=== PATIENT | female | born 1985 | race African-American/Black ===

== ENCOUNTER 2021-04-27 10:03 | Outpatient (CLI) | payer OTHER, SELFPAY ==
[2021-04-27 10:32] LABS: Basophils Percent Auto 0.9 % (0.2-1.2); Eosinophils Absolute Auto 0.2 K/mm3 (0-0.3); Eosinophils Percent Auto 3.3 % (0-4.4); Hematocrit 34.6 % (37.0-47.0); Hemoglobin 11.3 g/dL (12.0-15.0); Lymphocytes Absolute Auto 2.23 K/mm3 (0.9-3.2); Lymphocytes Percent Auto 49.6 % (18.3-44.2); Mean Corpuscular HGB Conc 32.7 g/dl (32-36); Mean Corpuscular Hemoglobin 28.5 pg (26-34); Mean Corpuscular Volume 87.2 fl (80-100); Mean Platelet Volume 8.7 fl (7.4-10.4); Monocytes Absolute Auto 0.5 K/mm3 (0.1-0.6); Monocytes Percent Auto 11.8 % (2.6-8.5); Neutrophils Absolute Auto 1.6 K/mm3 (1.3-6.7); Neutrophils Percent Auto 34.4 % (45.5-73.1); Platelet Count Result 276 k/mm3 (150-375); Red Blood Count 3.97 M/mm3 (4.2-5.4); Red Cell Distribution Width 13.3 % (11.5-14.5); White Blood Count 4.5 K/mm3 (4.5-10.0)
[2021-04-27 10:37] LABS: Add Urine Microscopic? YES; Appearance Urine Clear (Clear); Bacteria Urine Trace /hpf; Bilirubin Urine Negative (Negative); Blood Urine 1+ (Negative); Color Urine Colorless (Yellow); Glucose Urine UA Negative (Negative); Ketones Urine Negative (Negative); Leukocyte Esterase Ur Negative LEU/UL (Negative); Mucus Urine Rare /lpf; Nitrate Urine Negative (Negative); Protein Urine Negative (Negative); Squamous Epithelial Cell Urine Occasional /hpf (Few); Urobilinogen Urine Negative mg/dL (<2.0); WBC Urine 0-3 /hpf
[2021-04-27 10:44] LABS: Alanine Aminotransferase 9 U/L (4-35); Albumin Level 4.2 g/dL (3.5-5.1); Alkaline Phosphatase 40 U/L (38-126); Anion Gap 11 mmol/L (8-16); Aspartate Amino Transferase 22 U/L (14-36); Blood Urea Nitrogen 10 mg/dL (7-17); Calcium 9.1 mg/dL (8.4-10.2); Carbon Dioxide 22 mmol/L (22-30); Chloride 103 mmol/L (98-107); Cholesterol 146 mg/dL (0-200); Estimated Glomerular Filt Rate > 60; Glucose 97 mg/dL (65-110); HDL Direct 54 mg/dL; Potassium 3.5 mmol/L (3.4-5.0); Sodium 136 mmol/L (137-145); Triglycerides 83 mg/dL (<150)
[2021-04-27 10:46] LABS: Specific Grav Ur 1.004 (1.001-1.035)
[2021-04-27 10:54] LABS: LDL Cholesterol Direct 58 mg/dL
[2021-04-27 10:59] LABS: Hemoglobin A1C 5.8 % (<5.7)
[2021-04-27 11:31] LABS: Vitamin D 25 Hydroxy 50.2 ng/mL
== END 2021-04-27 10:04 | disposition home or self-care (01) ==
DX: E55.9 Vitamin D deficiency, unspecified (principal); I10 Essential (primary) hypertension; R73.02 Impaired glucose tolerance (oral)
CPT/HCPCS: 36415; 80053; 80061; 81001; 82306; 83036; 84443; 85025

== ENCOUNTER 2022-01-19 10:07 | Outpatient (CLI) | payer OTHER, SELFPAY ==
[2022-01-19 10:36] LABS: Hemoglobin A1C 6.2 % (<5.7)
[2022-01-19 10:38] LABS: Alanine Aminotransferase 10 U/L (6-35); Albumin Level 4.1 g/dL (3.5-5.1); Alkaline Phosphatase 35 U/L (38-126); Anion Gap 11 mmol/L (8-16); Aspartate Amino Transferase 21 U/L (14-36); Bilirubin,Total 0.5 mg/dL (0.2-1.3); Blood Urea Nitrogen 11 mg/dL (7-17); Calcium 8.7 mg/dL (8.4-10.2); Carbon Dioxide 25 mmol/L (22-30); Chloride 101 mmol/L (98-107); Cholesterol 142 mg/dL (0-200); Estimated Glomerular Filt Rate > 60; Glucose 109 mg/dL (65-110); HDL Direct 58 mg/dL; Sodium 137 mmol/L (137-145); Triglycerides 69 mg/dL (<150)
[2022-01-19 10:51] LABS: LDL Cholesterol Direct 60 mg/dL
== END 2022-01-19 10:08 | disposition home or self-care (01) ==
PROVIDERS: PCP Internal Medicine
DX: R73.03 Prediabetes (principal); I10 Essential (primary) hypertension
CPT/HCPCS: 36415; 80053; 80061; 83036

== ENCOUNTER 2022-06-07 10:35 | Outpatient (CLI) | payer OTHER, SELFPAY ==
[2022-06-07 11:03] LABS: Appearance Urine Clear (Clear); Bilirubin Urine Negative (Negative); Blood Urine Trace-lysed (Negative); Color Urine Yellow (Yellow); Glucose Urine UA Negative (Negative); Ketones Urine Negative (Negative); Leukocyte Esterase Ur Negative LEU/UL (Negative); Nitrate Urine Negative (Negative); Protein Urine Negative (Negative); Specific Grav Ur 1.025 (1.001-1.035); Urobilinogen Urine 0.2 mg/dL (<2.0); pH Urine 5.5 (5.0-9.0)
[2022-06-07 11:06] LABS: Basophils Absolute Auto 0.1 K/mm3 (0.0-0.1); Basophils Percent Auto 0.6 % (0.2-1.2); Eosinophils Absolute Auto 0.2 K/mm3 (0-0.3); Eosinophils Percent Auto 2.8 % (0-4.4); Hematocrit 38.7 % (37.0-47.0); Hemoglobin 12.7 g/dL (12.0-15.0); Immature Granulocyte Absolute 0.02 K/mm3 (0.00-0.031); Immature Granulocyte Percent A 0.2 % (0-0.5); Lymphocytes Absolute Auto 2.86 K/mm3 (0.9-3.2); Lymphocytes Percent Auto 34.8 % (18.3-44.2); Mean Corpuscular HGB Conc 32.8 g/dl (32-36); Mean Corpuscular Hemoglobin 28.5 pg (26-34); Mean Corpuscular Volume 86.8 fl (80-100); Mean Platelet Volume 8.8 fl (7.4-10.4); Monocytes Absolute Auto 0.6 K/mm3 (0.1-0.6); Monocytes Percent Auto 6.8 % (2.6-8.5); Neutrophils Absolute Auto 4.5 K/mm3 (1.3-6.7); Neutrophils Percent Auto 54.8 % (45.5-73.1); Platelet Count Result 391 k/mm3 (150-375); Red Blood Count 4.46 M/mm3 (4.2-5.4); White Blood Count 8.2 K/mm3 (4.5-10.0)
[2022-06-07 11:17] LABS: Hemoglobin A1C 6.3 % (<5.7)
[2022-06-07 11:18] LABS: Alanine Aminotransferase 14 U/L (6-35); Albumin Level 4.3 g/dL (3.5-5.1); Alkaline Phosphatase 39 U/L (38-126); Anion Gap 9 mmol/L (8-16); Aspartate Amino Transferase 23 U/L (14-36); Bilirubin,Total 0.9 mg/dL (0.2-1.3); Blood Urea Nitrogen 13 mg/dL (7-17); Calcium 8.8 mg/dL (8.4-10.2); Carbon Dioxide 25 mmol/L (22-30); Chloride 103 mmol/L (98-107); Estimated Glomerular Filt Rate > 60; Glucose 113 mg/dL (65-110); Potassium 3.8 mmol/L (3.4-5.0); Sodium 137 mmol/L (137-145)
[2022-06-07 11:20] LABS: Mucus Urine Rare /lpf; RBC Urine 0-2 /hpf (0-2); Squamous Epithelial Cell Urine Rare /hpf (Few); WBC Urine 0-3 /hpf
[2022-06-07 11:23] LABS: Iron 143 ug/dL (37-170)
[2022-06-07 11:27] LABS: Add Urine Microscopic? YES
[2022-06-07 11:33] LABS: Percent Iron Saturation 34 % (20-50)
== END 2022-06-07 10:36 | disposition home or self-care (01) ==
PROVIDERS: PCP Internal Medicine
DX: D50.9 Iron deficiency anemia, unspecified (principal); E55.9 Vitamin D deficiency, unspecified; I10 Essential (primary) hypertension; R73.03 Prediabetes
CPT/HCPCS: 36415; 80053; 81001; 82306; 82728; 83036; 83540; 83550; 84443; 85025

== ENCOUNTER 2022-12-22 10:16 | Outpatient (CLI) | payer OTHER, SELFPAY ==
[2022-12-22 11:17] LABS: Basophils Percent Auto 0.6 % (0.2-1.2); Eosinophils Absolute Auto 0.1 K/mm3 (0-0.3); Eosinophils Percent Auto 2.3 % (0-4.4); Hematocrit 38.7 % (37.0-47.0); Hemoglobin 12.8 g/dL (12.0-15.0); Immature Granulocyte Absolute 0.03 K/mm3 (0.00-0.031); Immature Granulocyte Percent A 0.5 % (0-0.5); Lymphocytes Absolute Auto 2.27 K/mm3 (0.9-3.2); Lymphocytes Percent Auto 36.5 % (18.3-44.2); Mean Corpuscular HGB Conc 33.1 g/dl (32-36); Mean Corpuscular Hemoglobin 28.5 pg (26-34); Mean Corpuscular Volume 86.2 fl (80-100); Mean Platelet Volume 9.1 fl (7.4-10.4); Monocytes Absolute Auto 0.5 K/mm3 (0.1-0.6); Monocytes Percent Auto 7.6 % (2.6-8.5); Neutrophils Absolute Auto 3.3 K/mm3 (1.3-6.7); Neutrophils Percent Auto 52.5 % (45.5-73.1); Platelet Count Result 371 k/mm3 (150-375); Red Blood Count 4.49 M/mm3 (4.2-5.4); Red Cell Distribution Width 12.4 % (11.5-14.5); White Blood Count 6.2 K/mm3 (4.5-10.0)
[2022-12-22 11:32] LABS: Alanine Aminotransferase 12 U/L (6-35); Albumin Level 4.1 g/dL (3.5-5.1); Alkaline Phosphatase 41 U/L (38-126); Anion Gap 8 mmol/L (8-16); Aspartate Amino Transferase 26 U/L (14-36); Blood Urea Nitrogen 14 mg/dL (7-17); Calcium 8.9 mg/dL (8.4-10.2); Carbon Dioxide 27 mmol/L (22-30); Chloride 102 mmol/L (98-107); Cholesterol 151 mg/dL (0-200); Estimated Glomerular Filt Rate > 60; Glucose 100 mg/dL (65-110); HDL Direct 66 mg/dL; Potassium 3.4 mmol/L (3.4-5.0); Sodium 137 mmol/L (137-145); Triglycerides 74 mg/dL (<150)
[2022-12-22 11:34] LABS: Hemoglobin A1C 6.1 % (<5.7)
[2022-12-22 11:44] LABS: LDL Cholesterol Direct 65 mg/dL
[2022-12-22 11:47] LABS: Creatinine Urine 337.3 mg/dL
[2022-12-22 11:49] LABS: Vitamin D 25 Hydroxy 49.6 ng/mL
[2022-12-22 11:56] LABS: Microalbumin Urine Random 26.9 mg/L (0-16.7)
== END 2022-12-22 10:17 | disposition home or self-care (01) ==
PROVIDERS: PCP Internal Medicine; Visit Provider Internal Medicine
DX: Z00.00 Encounter for general adult medical examination without abnormal findings (principal); R73.03 Prediabetes; I10 Essential (primary) hypertension; E55.9 Vitamin D deficiency, unspecified
CPT/HCPCS: 36415; 80053; 80061; 82043; 82306; 83036; 84443; 85025

== ENCOUNTER 2023-07-03 10:03 | Outpatient (CLI) | payer OTHER, SELFPAY ==
[2023-07-03 10:56] LABS: Basophils Percent Auto 0.4 % (0.2-1.2); Eosinophils Absolute Auto 0.2 K/mm3 (0-0.3); Eosinophils Percent Auto 2.5 % (0-4.4); Hematocrit 36.7 % (37.0-47.0); Hemoglobin 12.1 g/dL (12.0-15.0); Immature Granulocyte Absolute 0.01 K/mm3 (0.00-0.031); Immature Granulocyte Percent A 0.1 % (0-0.5); Lymphocytes Absolute Auto 2.98 K/mm3 (0.9-3.2); Lymphocytes Percent Auto 41.5 % (18.3-44.2); Mean Corpuscular Hemoglobin 28.3 pg (26-34); Mean Corpuscular Volume 85.9 fl (80-100); Mean Platelet Volume 9.1 fl (7.4-10.4); Monocytes Absolute Auto 0.5 K/mm3 (0.1-0.6); Monocytes Percent Auto 6.8 % (2.6-8.5); Neutrophils Absolute Auto 3.5 K/mm3 (1.3-6.7); Neutrophils Percent Auto 48.7 % (45.5-73.1); Platelet Count Result 367 k/mm3 (150-375); Red Blood Count 4.27 M/mm3 (4.2-5.4); Red Cell Distribution Width 13.2 % (11.5-14.5); White Blood Count 7.2 K/mm3 (4.5-10.0)
[2023-07-03 11:15] LABS: Alanine Aminotransferase 9 U/L (6-35); Albumin Level 3.9 g/dL (3.5-5.1); Alkaline Phosphatase 40 U/L (38-126); Anion Gap 6 mmol/L (8-16); Aspartate Amino Transferase 23 U/L (14-36); Bilirubin,Total 0.8 mg/dL (0.2-1.3); Blood Urea Nitrogen 13 mg/dL (7-17); Calcium 9.1 mg/dL (8.4-10.2); Carbon Dioxide 27 mmol/L (22-30); Chloride 103 mmol/L (98-107); Cholesterol 149 mg/dL (0-200); Estimated Glomerular Filt Rate > 60; Glucose 107 mg/dL (65-110); HDL Direct 62 mg/dL; Potassium 3.8 mmol/L (3.4-5.0); Sodium 136 mmol/L (137-145); Triglycerides 103 mg/dL (<150)
[2023-07-03 11:23] LABS: Microalbumin Urine Random 7.2 mg/L (0-16.7)
[2023-07-03 11:24] LABS: Creatinine Urine 331.4 mg/dL
[2023-07-03 11:25] LABS: MALB Creatinine Ratio 2.2 mg/g (0-30)
[2023-07-03 11:26] LABS: LDL Cholesterol Direct 74 mg/dL
[2023-07-03 12:06] LABS: Vitamin D 25 Hydroxy 59.8 ng/mL
[2023-07-03 12:52] LABS: Hemoglobin A1C 6.1 % (<5.7)
== END 2023-07-03 10:04 | disposition home or self-care (01) ==
PROVIDERS: PCP Internal Medicine; Visit Provider Internal Medicine
DX: E55.9 Vitamin D deficiency, unspecified (principal); D50.9 Iron deficiency anemia, unspecified; R73.03 Prediabetes; I10 Essential (primary) hypertension
CPT/HCPCS: 36415; 80053; 80061; 82043; 82306; 82728; 83036; 84443; 85025

== ENCOUNTER 2024-02-28 10:37 | Outpatient (CLI) | payer OTHER, SELFPAY ==
[2024-02-28 11:16] LABS: Basophils Absolute Auto 0.1 K/mm3 (0.0-0.1); Basophils Percent Auto 0.7 % (0.2-1.2); Eosinophils Absolute Auto 0.3 K/mm3 (0-0.3); Hematocrit 39.7 % (37.0-47.0); Hemoglobin 13.1 g/dL (12.0-15.0); Immature Granulocyte Absolute 0.02 K/mm3 (0.00-0.031); Immature Granulocyte Percent A 0.2 % (0-0.5); Lymphocytes Percent Auto 32.8 % (18.3-44.2); Mean Corpuscular Hemoglobin 28.5 pg (26-34); Mean Corpuscular Volume 86.3 fl (80-100); Mean Platelet Volume 8.8 fl (7.4-10.4); Monocytes Absolute Auto 0.6 K/mm3 (0.1-0.6); Neutrophils Absolute Auto 4.5 K/mm3 (1.3-6.7); Neutrophils Percent Auto 55.3 % (45.5-73.1); Platelet Count Result 414 k/mm3 (150-375); Red Cell Distribution Width 13.2 % (11.5-14.5); White Blood Count 8.2 K/mm3 (4.5-10.0)
[2024-02-28 11:27] LABS: Alanine Aminotransferase 15 U/L (6-35); Albumin Level 4.4 g/dL (3.5-5.1); Alkaline Phosphatase 41 U/L (38-126); Anion Gap 11 mmol/L (4-12); Aspartate Amino Transferase 30 U/L (14-36); Bilirubin,Total 0.9 mg/dL (0.2-1.3); Blood Urea Nitrogen 13 mg/dL (7-17); Calcium 9.6 mg/dL (8.4-10.2); Carbon Dioxide 29 mmol/L (22-30); Chloride 99 mmol/L (98-107); Cholesterol 152 mg/dL (0-200); Estimated Glomerular Filt Rate > 60; Glucose 97 mg/dL (65-110); HDL Direct 77 mg/dL; Hemoglobin A1C 6.1 % (<5.7); Potassium 3.4 mmol/L (3.4-5.0); Sodium 139 mmol/L (137-145); Triglycerides 83 mg/dL (<150)
[2024-02-28 11:38] LABS: LDL Cholesterol Direct 55 mg/dL
[2024-02-28 11:58] LABS: Vitamin D 25 Hydroxy 60.6 ng/mL
[2024-02-28 12:20] LABS: Creatinine Urine 285.9 mg/dL
[2024-02-28 12:24] LABS: MALB Creatinine Ratio 3.5 mg/g (0-30); Microalbumin Urine Random 10.1 mg/L (0-16.7)
== END 2024-02-28 10:38 | disposition home or self-care (01) ==
LOC: ANHLAB 10:39
PROVIDERS: PCP Internal Medicine; Visit Provider Internal Medicine
DX: Z00.00 Encounter for general adult medical examination without abnormal findings (principal); E55.9 Vitamin D deficiency, unspecified; I10 Essential (primary) hypertension; R73.03 Prediabetes
CPT/HCPCS: 36415; 80053; 80061; 82043; 82306; 83036; 84443; 85025

== ENCOUNTER 2024-12-01 10:17 | Outpatient (CLI) | payer OTHER, SELFPAY ==
--- OUTSIDE RECORDS SUMMARY | 2024-12-01 10:26 | XMS_ITS | Clinical Summary ---
Author Organization [facility] Address [address] [place] [id number] Care Team Providers Care General Manager [employer] Name Role Phone DanielCarmen sheehan Hao LI Primary Care Provider [phone] Allergies No known active allergies Medications No known medications Social History Tobacco Use Types Packs/Day Years Used Date Smoking Tobacco: Never Smokeless Tobacco: Never Alcohol Use Standard Drinks/Week Comments Yes 0 (1 standard drink = 0.6 oz pur e alcohol) socially Comments No Sex and Gender Information Value Date Recorded Sex Assigned at Not on file Legal Sex Female 5:02 PM CDT Gender Identity Not on file Sexual Orientation Not on file Last Filed Vital Signs Vital Sign Reading Time Taken Comments Blood Pressure 149/97 07/19/2018 3:24 AM CDT Pulse 62 07/19/2018 3:24 AM CDT Temperature 37.1 C (98.7 F) 07/19/2018 1:35 AM CDT Respiratory Rate 18 07/19/2018 3:24 AM CDT Oxygen Saturation 100% 07/19/2018 3:24 AM CDT Inhaled Oxygen Concentration - - Weight 74.4 kg (164 lb) 07/19/2018 1:35 AM CDT Height 167.6 cm (5' 6) 07/19/2018 1:35 AM CDT Body Mass Index 26.47 07/19/2018 1:35 AM CDT Plan of Treatment Health Maintenance Due Date Last Done Comments Cervical Cancer Screening Pa p Smear (Age 30 to 64) Every 3 Years 1984 Annual Physical 1987 Hepatitis C 2002 DTaP, Tdap and Td Vaccines ( 1 - Tdap) 2003 Hepatitis B Vaccines (1 of 3 - 19+ 3-dose series) 2003 HPV Vaccines (1 - 3-dose SCD M series) 2011 Cervical Cancer Screening Pa p with HPV Testing (Age 30 to 64) Every 5 Years 2014 Cervical Cancer Screening with HPV 2014 COVID-19 Vaccine (2023-2 5 season) 2023 Mammogram Screening 2024 Meningococcal B Vaccine Aged Out No l onger eligible based on patient's age to complete this topic Meningococcal Vaccine Aged Out No lucita gerber eligible based on patient's age to complete this topic Pneumococcal Vaccine: Pediat rics (0 to 5 Years) and At-Risk Patients (6 to 49 Years) Aged Out No longer eligible b ased on patient's age to complete this topic RSV Immunizations Under 20 Months Aged Out No longer eligible based on patient's age to complete this [place] [address] [employer] Care Teams General Manager [employer] Relationship Specialty Start Date End Date Carmen Sanchez DO [address] [place] [address] PCP - General 11/19/15
--- OUTSIDE RECORDS SUMMARY | 2024-12-01 10:26 | XMS_ITS | Continuity of Care Document ---
Author Organization [facility] Address [address] [place] [address] Phone Care Team Providers Care Switch Tender Name Role Phone Carmen Sanchez DO Unavailable Unavailable Allergies, Adverse Reactions, Alerts Substance Reaction Status Criticality No Known Allergies Active No Inform ation Medications Medication Instructions Dosage Effective Dates (start - stop) Status Comments valacyclovir 1 gram tablet take 1 tablet by oral route every 12 hours 1000 MG - Active SPIRONOLACTONE 25MG W/HCTZ 25MG TAB TAKE 1 TABLET BY MOUTH EVERY DAY - Active OZEMPIC 2MG PER DOSE (8MG/3ML) PFP INJECT 2MG UNDER THE SKIN ONCE WEEKLY - Active trazodone 50 mg tablet take 1/2 - 2 tablets by oral route every bedtime as needed - Active ibuprofen 600 mg tablet take 1 tablet by oral route 3 times a day as needed - Active Accu-Chek Guide Glucose Meter - Active Dx: R73.03 Prediabetes Accu-Chek Safe-T-Pro 23 gauge - Active Dx: R73 .03 Prediabetes Accu-Chek Guide test strips insert 1 by Subcutaneous route every day 1 - Active Dx: R73.03 Prediabetes - Check one time daily multivitamin tablet take 1 by Oral route once 1 - Active FLUTICASONE 50MCG NASAL SP (120) RX SHAKE LIQUID AND USE 2 SPRAYS IN EACH NOSTRIL EVERY DAY NEEDED 100 MCG - Active Vitamin D3 25 mcg (1,000 unit) tablet take 3 by Oral route once 3 - Active Zyrtec 10 mg tablet take 1 tablet by oral route every day as needed - Active valacyclovir 1 gram tablet take 1 tablet by oral route every 12 hours 1000 MG - No Longer Active Procedures Procedure Date OFFICE [id number] BODY MASS INDEX [facility] SYST BP LT 130 MM HG DIAST BP < 80 MM HG OFFICE [id number]-[id number] [facility] 130 MM HG DIAST BP < 80 MM HG Pt inelig neg scrn depres PREVENTATIVE-EST: [facility] LT 130 MM HG DIAST BP < 80 MM HG OFFICE OQHNO-FBV-[id number] Visit Complexity Inherent To E/M 2023 BODY MASS INDEX DOCD SYST BP LT 130 MM HG DIAST BP < 80 MM HG Pt inelig neg scrn depres PREVENTATIVE-EST: [facility] LT 130 MM HG DIAST BP 80-89 MM HG Pt inelig neg scrn depres OFFICE [id number]-QBE-YEFSVIJG BODY MASS INDEX DOCD SYST BP LT 130 MM HG DIAST BP < 80 MM HG OFFICE [id number]-[id number]-[id number] BODY MASS INDEX [facility]D SYST BP LT 130 MM HG DIAST BP < 80 MM HG Pt inelig neg scrn depres OFFICE QWVPW-[id number]-XXANBOYZ BODY MASS INDEX DOCD SYST BP LT 130 MM HG DIAST BP < 80 MM HG OFFICE [id number]-[id number] OFFICE QZSHQ-WQR-OOCGFTQN OFFICE NVBOI-JRC-HNNCTEWO URINALYSIS, DIPSTICK (UA) - Office Lab A OFFICE DYEUK-DPA-QYIUJFLS [facility] PANEL HEMOGLOBIN A1C HGA1C, GLYCO LIPID PANEL URINALYSIS, REFLEX (UA) ROUTINE VENIPUNCTURE OFFICE [id number] Advance Directives Directive Yes / No Effective Date File Name Life Support Not Answered N/A N/A Intubation Not Answered N/A N/A Antibiotics Not Answered N/A N/A IV Fluid Support Not Answered N/A N/A Tube Feed Not Answered N/A N/A Other Directive N/A N/A WARNING:The information contained in this section is historical and is provided for information only and does not constitute a legal document or any assurance that the information is still accurate. Please verify the information with the archuleta of the legal document before using it for clinical purposes. Encounters Encounter Description Practice Location Reason(s) For Visit Diagnoses Date Provider Providers Copied on Encounter [facility], [address], [place], [place], [address] , tel: [phone] [facility] No Information 5 Daniel Morales. [address], [place], [id number] , [place]. tel: [phone] [facility], [address], [place], [place], [address] , tel: [phone] [facility] No Information 5 Daniel Morales. [address], [place], [id number] , [place]. tel: [phone] [facility], [address], [place], [place], [address] , tel: [phone] [facility] No Information 5 Daniel Morales. [address] [place] [address], [id number] , . tel: [phone] OFFICE TLYAQ-HHC-GR [facility], [address], [place], [place], [address] , tel: [phone] [facility] 6 month appt (chief complaint)c hronic conditions (chief complaint)C hronic Conditions (chief complaint) Essential (primary) hypertensionVitami n D deficiency, unspecifiedPrediab etesIron deficiency anemia, unspecifiedProlong ed grief disorder 5 Daniel Morales. [address] [place] [address], [id number] , [place]. tel: [phone] Referring Provider: Carmen Bui, [address] [place] [address], [address] . tel:[phone] OFFICE MSTUV-PLK-AX [facility], [address], [place], [place], [address] , [place] tel: [phone] [facility] Ear pain (chief complaint) Acute left otitis mediaPrediabetesEs sential (primary) hypertension 5 Jose E William. [address] [place] [address], [address], [place]. tel: [phone] Referring Provider: Carmen Bui, [address] [place] [address], [address] . tel:[phone] PREVENTATIVE -EST: 18-39 [facility], [address], [place], [place], [address] , tel: [phone] [facility] 6 month appt (chief complaint)C hronic Conditions (chief complaint) Encounter for general adult medical examination without abnormal findingsEssential (primary) hypertensionVitami n D deficiency, unspecifiedPrediab etes Dec-0 4 Daniel Morales. [address] [place] [address], [id number] , . tel: [phone] Referring Provider: Carmen Bui, [address] [place] [address], [address] . tel:[phone] OFFICE RLVRI-SXV-XE [facility], [address], [place], [place], [address] , [place] tel: [phone] [facility] 6 month appt (chief complaint)C hronic Conditions (chief complaint) Essential (primary) hypertensionVitami n D deficiency, unspecifiedPrediab etesIron deficiency anemia, unspecified 4 Daniel Morales. [address] [place] [address], [id number] , . tel: [phone] Referring Provider: Carmen Bui, [address] [place] [address], [place], [address] . tel:[phone] PREVENTATIVE -EST: 18-39 [facility], [address], [place], [place], [address] , [place] tel: [phone] [facility] preventive exam (chief complaint)6 month appt (chief complaint)O ther (chief complaint)C hronic Conditions (chief complaint) Encntr for general adult medical exam w/o abnormal findingsPrediabete sVitamin D deficiency, unspecifiedEssenti al (primary) hypertensionBody mass index [BMI] 25.0-25.9, adult 3 Daniel Morales. [address] [place] [address], [id number] , . tel: [phone] Referring Provider: Carmen Bui, [address] [place] [address], [address] . tel:[phone] OFFICE OQRRA-GRN-YY [facility], [address], [place], [place], [address] , [place] tel: [phone] [facility] 6 month (chief complaint)C hronic Conditions (chief complaint) Body mass index [BMI] 26.0-26.9, adultEssential (primary) hypertensionPredia betesVitamin D deficiency, unspecifiedLow grade squamous intraepithelial lesion on cytologic smear of cervix (LGSIL)Iron deficiency anemia, unspecified iron deficiency anemia type Feb-0 3 Jose E William. [address] [place] [address], [address], [place]. tel: [phone] Referring Provider: Carmen Bui, [address] [place] [address], [address] . tel:[phone] [facility], [address], [place], [place], [address] , tel: [phone] [facility] Essential hypertensionIron deficiency anemia, unspecified iron deficiency anemia type Dec- 2 [facility]. [address] [place] [address], [address], [place]. tel: [phone] OFFICE UCTNR-MYM-WH [facility], [address], [place], [place], [address] , tel: [phone] [facility] 6 month (chief complaint) Body mass index [BMI] 25.0-25.9, adultEssential (primary) hypertensionVitami n D deficiency, unspecifiedPrediab etesEustachian tube dysfunction, bilateralCold sore 2 Jose E [facility]. [address] [place] [address], [address], [place]. tel: [phone] Referring Provider: Carmen Bui, [address] [place] [address], [address] . tel:[phone] OFFICE DDIEV-OBH-BP [facility], [address], [place], [place], [address] , tel: [phone] [facility] f/u. (chief complaint) Body mass index [BMI] 25.0-25.9, adultEssential (primary) hypertensionPredia betesVitamin D deficiency, unspecified 2 Jose E William. [address] [place] [address], [address], [place]. tel: [phone] Referring Provider: Carmen Bui, [address] [place] [address], [address] . tel:[phone] [facility], [address], [place], [place], [address] , tel: [phone] [facility] Chronic Conditions (chief complaint) PrediabetesOverwei ght (BMI 25.0-29.9) 1 Valentina Middleton. [address] [place] [address], [id number] , [place]. tel: [phone] Referring Provider: Carmen Bui, [address] [place] [address], [address] . tel:[phone] [facility], [address], [place], [place], [address] , [place] tel: [phone] [facility] Vitamin D deficiency, unspecifiedEssenti al (primary) hypertensionImpair ed glucose tolerance (oral) 1 Valentina Middleton. [address] [place] [address], [id number] , [place]. tel: [phone] [facility], [address], [place], [place], [address] , tel: [phone] [facility] No Information 1 Daniel Morales. [address] [place] [address], [id number] , [place]. tel: [phone] OFFICE TZRZX-TCZ-TT [facility], [address], [place], [place], [address] , tel: [phone] [facility] Chronic Conditions (chief complaint)o ther (chief complaint) Body mass index (BMI) 29.0-29.9, adultVitamin D deficiency, unspecifiedEssenti al (primary) hypertensionImpair ed glucose tolerance (oral)Weight gainCough 1 Montgomeryabelino Middleton. [address] [place] [address], [id number] , . tel: [phone] Referring Provider: Carmen Bui, [address] [place] [address], [address] . tel:[phone] [facility], [address], [place], [place], [address] , tel: [phone] [facility] Chronic Conditions (chief complaint) Body mass index (BMI) 26.0-26.9, adultEssential (primary) hypertensionVitami n D deficiency, unspecifiedImpaire d glucose tolerance (oral) 0 Daniel Morales. [address] [place] [address], [id number] , . tel: [phone] Referring Provider: Carmen Bui, [address] [place] [address], [address] . tel:[phone] [facility], [address], [place], [place], [address] , tel: [phone] [facility] Urinary frequencyUrine leukocytes 0 Daniel Morales. [address] [place] [address], [id number] , . tel: [phone] Referring Provider: Carmen Bui, [address] [place] [address], [address] . tel:[phone] [facility]ICE [facility], [address], [place], [place], [address] , tel: [phone] [facility] Chronic Conditions (chief complaint) Essential (primary) hypertensionImpair ed glucose tolerance (oral)Vitamin D deficiency, unspecifiedPersona l history of other diseases of the circulatory system 0 Daniel Morales. [address] [place] [address], [id number] , [place]. tel: [phone] Referring Provider: Carmen Bui, [address] [place] [address], [address] . tel:[phone] OFFICE URXAZ-XSZ-LG [facility], [address], [place], [place], [address] , tel: [phone] [facility] Chronic Conditions (chief complaint) Body mass index (BMI) 25.0-25.9, adultEssential (primary) hypertensionImpair ed glucose tolerance (oral)Abdominal complaints Sep-3 0- 9 [facility]. [address] [place] [address], [address], [place]. tel: [phone] Referring Provider: Carmen Bui, [address] [place] [address], [address] . tel:[phone] [facility], [address], [place], [place], [address] , tel: [phone] [facility] Body mass index (BMI) 25.0-25.9, adultAcute non-recurrent sinusitis, unspecified location 9 Robinson Malcolm. [address] [place] [address], [id number] , . tel: [phone] Referring Provider: Carmen Bui, [address] [place] [address], [address] . tel:[phone] [facility], [address], [place], [place], [address] , tel: [phone] [facility] Body mass index (BMI) 24.0-24.9, adultVitamin D deficiencyEssentia l (primary) hypertensionIGT (impaired glucose tolerance) Dec-0 3-201 8 Jose E Gaylin. [address] [place] [address], [address], [place]. tel: [phone] Referring Provider: Carmen Bui, [address] [place], [address] . tel:[phone] [facility], [address], [place], [place], [address] , tel: [phone] [facility] Body mass index (BMI) 24.0-24.9, adultType 2 diabetes mellitus without complication, without long-term current use of insulinEssential (primary) hypertensionVitami n D deficiency Jul- 8 Brayan Roberts. [address] [facility], [address], [address], [place]. tel: [phone] Referring Provider: Alejandra Caldera, [address] [place] [address] [place] [address], [facility]. tel:[phone] [facility], [address], [place], [place], [address] , tel: [phone] [facility] Body mass index (BMI) 24.0-24.9, adultEssential (primary) hypertensionType 2 diabetes mellitus without complication, without long-term current use of insulin 7 Brayan Roberts. [address] [facility], [address], [facility], [place]. tel: [phone] Referring Provider: Alejandra Caldera, [address] [facility] [address] [place] [address], [facility]. tel:[phone] [facility], [address], [place], [place], [address] , [place] tel: [phone] [facility] Essential (primary) hypertension Sep-0 7 Brayan Roberts. [address] [facility], [address], [address], [place]. tel: [phone] Referring Provider: Alejandra Caldera, [address] [facility] [address] [place] [address], [facility]. tel:[phone] [facility], [address], [place], [place], [address] , tel: [phone] [facility] Type 2 diabetes mellitus without complication, without long-term current use of insulinEssential (primary) hypertension Brayan Roberts. [address] [place] [address], [facility], [place]. tel: [phone] Referring Provider: Alejandra Caldera, [address] [place] [address], [place], [address]. tel:[phone] [facility], [address], [place], [place], [address] , tel: [phone] [facility] Body mass index (BMI) 27.0-27.9, adultEssential (primary) hypertensionType 2 diabetes mellitus without complication, without long-term current use of insulinVitamin D deficiency Brayan Roberts. [address], [facility], [place]. tel: [phone] Referring Provider: Alejandra Caldera, [address] [place] [address], [place], [place], [facility]. tel:[phone] [facility], [address], [place], [place], [address] , [place] tel: [phone] [facility] Essential (primary) hypertensionIGT (impaired glucose tolerance)Weight gain 6 Daniel Morales. [address] [place] [address], [id number] , [place]. tel: [phone] Referring Provider: Carmen Bui, [address] [place] [address], [address] . tel:[phone] [facility], [address], [place], [place], [address] , [place] tel: [phone] [facility] Essential (primary) hypertensionElevat ed glucose 6 Daniel Morales. [address] [place] [address], [id number] , [place]. tel: [phone] [facility], [address], [place], [place], [address] , [place] tel: [phone] [facility] Other alf (current) drug therapyEssential (primary) hypertension 3-201 6 Daniel Morales. [address] [place] [address], [id number] , . tel: [phone] Referring Provider: Carmen Bui, [address] [place] [address], [address] . tel: [facility], [address], [place], [place], [address] , tel: [phone] [facility] Essential (primary) hypertension 1201 6 Daniel Morales. [address] [place] [address], [id number] , [place]. tel: [phone] Referring Provider: Carmen Bui, [address] [place] [address], [address] . tel: [facility], [address], [place], [place], [address] , tel: [phone] [facility] Essential (primary) hypertensionOral contraceptive use 6 Jose E Gaylin. [address] [place] [address], [address], . tel: [phone] Referring Provider: Carmen Bui, [address] [place] [address], [address] . tel: [facility], [address], [place], [place], [address] , tel: [phone] [facility] Essential (primary) hypertension 6 Daniel Morales. [address] [place] [address], [id number] , [place]. tel: [phone] Referring Provider: Carmen Bui, [address] [place] [address], [place], [address] . tel: [facility], [address], [place], [place], [address] , tel: [phone] [facility] Essential (primary) hypertension 2 6 Daniel Morales. [address] [place] [address], [place], [address] , . tel: [phone] Referring Provider: Carmen Bui, [address] [place] [address], [place], [address] . tel:[phone] [facility], [address], [place], [place], [address] , tel: [phone] [facility] HypertensionFamily history of cerebral aneurysm 7 5 Daniel Morales. [address] [place] [address], [place], [place], [address] , . tel: [phone] Referring Provider: Carmen Bui, [address] [place] [address], [place], [address] . tel:[phone] [facility], [address], [place], [place], [address] , tel: [phone] [facility] HypertensionFamily history of cerebral aneurysm 0- 4 Daniel Morales. [address] [place] [address], [id number] , . tel: [phone] Referring Provider: Carmen Bui, [address] [place] [address], [address] . tel:[phone] [facility], [address], [place], [place], [address] , tel: [phone] [facility] Family history of cerebral aneurysmChronic daily headacheHypertensi on 4-201 4 Daniel Morales. [address] [place] [address], [place], [address] , . tel: [phone] [facility], [address], [place], [place], [address] , tel: [phone] [facility] Family history of cerebral aneurysmChronic daily headacheHypertensi on 0-201 4 Daniel Morales. [address] [place] [address], [place], [address] , [place]. tel: [phone] [facility], [address], [place], [place], [address] , [place] tel: [phone] [facility] HypertensionChroni c daily headacheFamily history of cerebral aneurysm 4 Daniel Morales. [address] [place] [address], [place], [address] , [place]. tel: [phone] Referring Provider: Carmen Bui, [address] [place] [address], [place], [address] . tel:[phone] Family History Family Member Type Diagnosis Age At Onset Brother Problem (finding) Father Problem (finding) Hypertension, unspecifi ed type Sister Problem (finding) Type 2 diabete s mellitus without complication, with long-term current use of insulin Sister Problem (finding) Father Problem (finding) coronary arterioscleros is 60 Father Problem (finding) Cardiovascular disease Mother Problem (finding) coronary arterioscleros is Brother Problem (finding) Essential hypertension Father Problem (finding) hypertension Mother Problem (finding) aneurysm of ab dominal aorta (Cause Of ) 48 Immunizations Vaccine Date Status Comments Pfizer (Diluent Reconstitute d) COVID19 Vaccine, 0.3mL per dose, 2 doses, administered 21 days apart administered Note: Cole bryson ; Source: Other Provider Pfizer (Diluent Reconstitute d) COVID19 Vaccine, 0.3mL per dose, 2 doses, administered 21 days apart administered Note: Cole bryson ; Source: Other Provider Fluzone Quad [id number], spli t virus, 0.5mL dosage refused Source: New Immuniza tion Record Td (adult) preservative free refused Source: New Immunization Record Influenza, injectable, quadrivalent, preservative free, 3 yrs or older refused Source: New Immuniz ation Record Payers Payer name Insurance type Covered libertarian ID Authoriza tion(s) [employer] [facility] [id number] [employer] [facility] [id number] [facility] [id number] Social History Type Description Quantity Date Captured Comments Alcohol Use Details Unknown Caffeine Use Details Unknown Tobacco Use Status No Information Smoking Status No Information Sex Female Gender Identity Female Chief Complaint And Reason For Visit No Information Reason For Referral Reason For Referral No Information Plan Of Treatment Date Type Action Status Goal Dietary manageme nt education, guidance, and counseling completed Goal Dietary manageme nt education, guidance, and counseling completed Goal Dietary manageme nt education, guidance, and counseling completed Goal Dietary manageme nt education, guidance, and counseling completed Goal Dietary manageme nt education, guidance, and counseling completed Goal Dietary manageme nt education, guidance, and counseling completed Goal Dietary manageme nt education, guidance, and counseling completed Goal Dietary manageme nt education, guidance, and counseling completed Appointment Kumar Lira BOOKED Future Order: Lab Order Iron/TIB C Panel ([id number]), Ordered on: Ordered Future Order: Lab Order CBC AUTO DIFF ([id number]), Ordered on: Ordered Future Order: Lab Order Lipid Pa brown W/Reflex To Direct LDL ([id number]), Ordered on: Ordered Future Order: Lab Order Microalb umin/Creatinine Ratio ([id number]), Ordered on: Ordered Future Order: Lab Order Vitamin D, 25-Hydroxy ([id number]), Ordered on: Ordered Future Order: Lab Order Comprehe nsive Metabolic (CMP) ([id number]), Ordered on: Ordered Future Order: Lab Order Creatine Kinase (CK) ([id number]), Ordered on: Ordered Future Order: Lab Order Ferritin ([id number]), Ordered on: Ordered Future Order: Lab Order Hemoglob in A1c ([id number]), Ordered on: Ordered Future Order: Lab Order TSH with Reflex FT4 ([id number]), Ordered on: Ordered Future Order: Lab Order Comprehe nsive Metabolic (CMP) ([id number]), Collected on: , Sent on: Sent Future Order: Lab Order CBC AUTO DIFF ([id number]), Collected on: , Sent on: Sent Future Order: Lab Order Hemoglob in A1c ([id number]), Collected on: , Sent on: Sent Future Order: Lab Order Lipid Pa brown ([id number]), Collected on: , Sent on: Sent History Of Present Illness Encounter Date Complaint History Of Prese nt Illness 6 month appt pt due for:PAP - July 2023Mammogram - pt verbalized I have never had a mammogramEye exam - See below.K3sFkwpjutizvtbTYQXfshme visits:Eye exam - [facility] - DecFuture appt:OBGYN - Dr Genao - pt unsureVaccinations due:Pneumo - pt has not receivedTD/TDAP - pt denies recentpt refuses COVID and Flu vaccinesOutstanding referrals: n/a-Prediabetespt denies increase urinary frequency, blurred vision Chronic Conditions *See Chronic Conditions HPI chronic conditions *See Chronic Conditions HPI Ear pain Mild ear pain st arted on Sunday.Got worse Sunday night.Woke up with severe left ear pain.Has been alternating with ibuprofen and tylenol with some relief.She feels a pulsating pain.Ear is painful to touch. Every 30 minutes she gets a shooting pain inward.no fever, drainage, or sick contacts.She has prediabetes.She takes Ozempic.A1c has been less than 6.2.She has hypertension. Blood pressure managed on current medication. Chronic Conditions *See Chronic Conditions HPI 6 month appt pt due for:Adv c are planning - pt does not have LW/POA - pt not interested on information at this moment.PAP - pt unsure of dateEye exam - July 2023 at [facility] [id number] visits:OBGYN - Dr Sanon - pt unsure of date.Eye exam - July 2023 at [facility] eye [facility] appt:n/aVaccinations due:[facility] booster - pt refusesFlu - pt refusesTD/TDAP - pt denies recentOutstanding referrals:n/a Chronic Conditions *See Chronic Conditions HPI 6 month appt pt due for:PAP - June1cEye exam - SeptemberFoot exameGFRMicwinniealbuminPrimo Andujar [facility] - Dr Genao - [place]- JuneVaccinations due:[facility] - Flu - pt has not receivedTD/TDAP - pt denies recentOutstanding referrals:n/a -Prediabetespt denies increase urinary frequency, blurred vision preventive exam Currently pregna nt: no. She does not take calcium. She reports taking a vitamin D supplement daily. She does take multivitamins daily. She does not take Folic acid.The patient states her exercise frequency is 2-3 times/week. The patient does not use tobacco. She does drink alcohol. 6 month appt pt presents tokatie y, by herself , for her 6 month appt & yearly physical exam. -Hypertensionpt denies headaches, dizziness, nausea, lightheadedness, chest pain, palpitationspt monitor BP at homept verbalized she is compliant w/ medication -Prediabetespt denies increase urinary frequency, blurred visionpt working on healthier diet choices, exercise as tolerated.Weight loss since last OV: 5.4 lbs Other pt due for:PAP - July - Dr Lang A1cEye exam - September [facility] examMicroalbuminLDLRecent visits:n/aFuture appt:n/aVaccinations due:[facility] in 2021 - Pneumo - pt deniesTD/TDAP - pt deniesOutstanding referrals:n/aQuestions:No questions Chronic Conditions *See Chronic Conditions HPI Chronic Conditions *See Chronic Conditions HPI 6 month Patient is here for 6-month follow-up.She tells me that her father is now in the medical ICU at [facility] due to congestive heart failure. 6 month Pt is here for 6 month f/uShe is still with [place] working with performance improvement.She had a pap earlier this year requiring colposcopy. She also had ultrasound. no reports will obtain from Dr. Genao. Was told she needs pap yearly. HTN: She has very well controlled HTN on current meds. Feels good. no fatigue or dizziness.vitamin d deficiency- recent levels normal. taking supplement.Prediabetes- Was placed on ozempic to help with weightloss and treat diabetes. Highest A1c was 6.6 in 2016. It was 6.0 prior to initiating ozempic.She is down in weight and feels better on this medication. She had labs drawn 6 months ago (no report) but showed me on her phone through [employer]. cbc, cmp, ua, TSH, vitamin d normal with A1c of 5.8. She will continue 0.5mg weekly. Will get labs drawn at workBMI 25.37. She feels better with the weight loss. The ozempic helps her get full quicker. She went to [place] for 10 days and had a hard time getting back into her routine when she returned. She is easing back into routine to hopefully start working out 3-4 times a week in addition to eating less.Ears feel clogged x 2 monthsshe is cleaning them every day. I feel drainage there is nothing on q-tip.Denies sore throat, congestion, headache, PNDhas allergy issues, pippa if she misses zyrtec.she uses flonase on occasion but not recently.She has a cold sore. hasn't had one in over 10 yearsunder stress because she was told she has until the end of the year to move. Her landlord is going to sell the house. f/u. Pt is here for 6 month f/uShe is now with [facility] working with performance improvement.She has a pap later this month with [facility].HTN:She has very well controlled HTN on current meds. Feels good. no fatigue or dizziness.vitamin d deficiency- recent levels normal. taking supplement.Prediabetes- Was placed on ozempic to help with weightloss and treat diabetes. Highest A1c was 6.6 in 2016. It was 6.0 prior to initiating ozempic.She is down 20 pounds and feels great. She had labs drawn a few days ago and showed me on her phone through [employer]. cbc, cmp, ua, TSH, vitamin d normal with A1c of 5.8. She will continue 0.5mg weekly. BMI 25.9. She feels better with the 20 pounds weight loss. The ozempic helps her get full quicker. She is also working out 3-4 times a week in addition to eating less. Chronic Conditions *See Chronic Conditions HPI Chronic Conditions *See Chronic Conditions HPI Chronic Conditions other reports non prod uctive cough x 1 weekstates daughter returned home from college with a cough but was tested for COVID which was negativedenies productivity, nasal drainage, fever, chills, and shortness of breathWeight is up 15 pounds since last year.Patient states she started working with a head athletic trainer ar [employer] 4 days a week to help lose weight.is also working on improving her diet Chronic Conditions *See Chronic Conditions HPI Chronic Conditions *See Chronic Conditions HPI Chronic Conditions *See Chronic Conditions HPI Functional Status Date Functional Assessmen t No Information Instructions Date Instruction Additional Infor stella continue with the current medica tion Related to Prediabetes levels will be checked Related t o Iron deficiency anemia, unspecified levels will be monitored Related to Vitamin D deficiency, unspecified your blood pressure is stableno changes recommended Related to Essential (primary) hypertension I am going to send a low dose of medication to help with sleep and anxiety and depressiontake 1/2 tab to 2 tabs depending on how it works 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 You can take Tylenol for pain.Take the antibiotic with food.Please call in a week with an update, sooner if symptoms worsen Related to Acute left otitis media Continue with the Oz empic.Levels will be checked at next office visit. Related to Prediabetes Blood pressure is st able.Continue on current medication. No changes at this time.Call with any questions or concernsNo labs todayReturn as scheduled Related to Essential (primary) hypertension Disease process routine labs will be checkedreturn to me in 6 monthscall me with questions or concernsroutine mammogram to start at age 39 Related to Encounter for general adult medical examination without abnormal findings levels will be check edcontinue with the current medication Related to Prediabetes levels will be check edContinue with the supplement Related to Vitamin D deficiency, unspecified Your blood pressure is stableno changes recommended - continue with the water pill combo as prescribed Related to Essential (primary) hypertension Disease process blood counts will be checked Rel ated to Iron deficiency anemia, unspecified continue with the ozempic Relate d to Prediabetes levels will be check edcontinue with the supplement Related to Vitamin D deficiency, unspecified your blood pressure is stableno changes recommended Related to Essential (primary) hypertension Disease process your blood pressure is excellentcontinue with the current medication Related to Essential (primary) hypertension levels will be checked Related t o Vitamin D deficiency, unspecified I will increase you to the 2 mg dose I will send in a new script to your pharmacy Related to Prediabetes routine labs will be checkedI will call you with the resultsreturn to me in 6 monthscall me with questions or concerns Related to Encntr for general adult medical exam w/o abnormal findings Dietary management e ducation, guidance, and counseling Related to Body mass index (BMI) 25.0-25.9, adult Disease process Prescribed activity/exercise edu cation Related to Body mass index (BMI) 25.0-25.9, adult Vitamin D levels will be checked Related to Vitamin D deficiency, unspecified You have an upcoming appointment with Dr. Genao in June. 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 He did not take the Bystolic today.We will stop this since this has been denied by your insurance.We will increase the Aldactone hydrochlorothiazide to daily.Please get labs done today.Monitor your blood sugar from home and call us if it is running higher than 130/90 Related to Essential (primary) hypertension Giving encouragement to exercise Related to Body mass index (BMI) 26.0-26.9, adult Dietary management e ducation, guidance, and counseling Related to Body mass index (BMI) 26.0-26.9, adult Disease process I will send in valac yclovir for you to take to help with the cold sore.Call with any questions or concernsCMP, A1c, lipids to be checked p lease fast for 12 hoursReturn in 6 monthsI do recommend the COVID booster Related to Cold sore Continue on your current supplem ent Related to Vitamin D deficiency, unspecified Continue on your cur rent dose of Ozempic.Continue on your diet and exercise routine.[facility]c [facility].Lab rec will be given todayStatus: Meeting treatment plan goals. Goals: Your goal is to manage your medicine. Barriers: No barriers to goal achievement have been identified. Related to Prediabetes Continue on the Zyrt ec.I recommend you use Flonase 1 puff per nostril twice a day until your symptoms improve.You can see if discontinuing it helps with your symptoms or if you need to continue it. Related to Eustachian tube dysfunction, bilateral Your blood pressure is well controlled.Continue on current medication Related to Essential (primary) hypertension Disease process Dietary management e ducation, guidance, and counseling Related to Body mass index (BMI) 25.0-25.9, adult Giving encouragement to exercise Related to Body mass index (BMI) 25.0-25.9, adult continue on current dose your levels looked call with any questions or concernsPlease see if you can get us the labskeep your appointment with Dr. Braswell this month Please continue to follow COVID precautions including: wearing a mask or face covering in public, washing your hands frequently and remaining socially distant when in public. Related to Vitamin D deficiency, unspecified Status: Meeting rich tment plan goals. Goals: Your goal is to manage your medicine. Barriers: No barriers to goal achievement have been identified.Your A1c was 5.8we will continue the ozempic at 0.5mg weeklycall if you notice any weight gain or want to try a higher dose. Related to Prediabetes great job with the Augmentix losscontinue with going to the gym 3-4 times a week Related to Body mass index [BMI] 25.0-25.9, adult Your blood pressure is well controlled todayno change in medications at this timemonitor from home and call if you notice it consistently above 140/90 Related to Essential (primary) hypertension Dietary management e ducation, guidance, and counseling Related to Body mass index (BMI) 25.0-25.9, adult Giving encouragement to exercise Related to Body mass index (BMI) 25.0-25.9, adult Disease process as stated above Related to Overw eight (BMI 25.0-29.9) We will start you on a once weekly injectable called Ozempic to help with weight loss.First injection today0.25mg weekly for the first 4 weeksThen increase to 0.5mg on Sunday.common side effects:nausea, vomiting, diarrhea, decreased appetite, and indigestionMonitor your blood sugars twice a day and pay attention to signs of low blood sugar like dizziness, blurred vision, sweating, slurred speech, confusion or drowsiness, shakiness, weakness, headache, feeling jittery.You may have to eat smaller meals while on this medication.Stop eating when feeling fullAvoid fatty and fried foodsYou may experience nausea more so in the first 2-3 days after the first dose. Nausea tends to get better after the first 2 weeks of starting this medicationCall me in 1 month and let me know how you're doing with the medication.Continue with social distancing.AVOID CROWDS AVOID TOUCHING YOUR FACE AVOID UNNECESSARY TRAVEL. WASH HANDS OFTEN. CALL WITH QUESTIONS/CONCERNS Please call the office with any issues, questions, or concerns prior to your next appointment.Follow up for your annual physical in February as scheduledStatus: Able to self-manage condition. Goals: Your goal is to work on healthy eating habits. Barriers: No barriers to goal achievement have been identified. Related to Prediabetes Disease process I will send a prescr iption for Tessalon as needed during the day and Cheratussin at night.Please call if this does not improve Related to Cough You have started wit h a head athletic trainer to help with weight loss.Keep up the good work.Call if there is anything I can assist with Related to Weight gain Your blood pressure is well controlled today.Continue your current medications.No labs today.I will call you in October to see how you're doing with the weight loss.Continue with social distancing.AVOID CROWDS AVOID TOUCHING YOUR FACE AVOID UNNECESSARY TRAVEL. WASH HANDS OFTEN. CALL WITH QUESTIONS/CONCERNS Please call the office with any issues, questions, or concerns prior to your next appointment.Follow up with Dr. Sanchez in 6 months Related to Essential (primary) hypertension Continue your vitami n D as prescribed.We will check your level again with your next labs Related to Vitamin D deficiency, unspecified Status: Able to self -manage condition. Goals: Your goal is to work on healthy eating habits. No barriers to goal achievement have been identified.Continue to monitor your glucose levels and working on diet and exercise.Call if sugars are consistently greater than 150 Related to Impaired glucose tolerance (oral) Giving encouragement to exercise Related to Body mass index (BMI) 29.0-29.9, adult Disease process Dietary management e ducation, guidance, and counseling Related to Body mass index (BMI) 29.0-29.9, adult Your weight is up a few poundskeep working on portion controlreturn to me in 6 monthscall me with questions or concernscall me if you would like your FLU shot Related to Body mass index (BMI) 26.0-26.9, adult Your blood pressure is well controlledno changes at this timereturn to me in 4-6 monthscall me with questions or concerns Related to Essential (primary) hypertension levels will be check edcontinue with your supplement Related to Vitamin D deficiency, unspecified Status: Able to self -manage condition. Goals: Your goal is to work on healthy eating habits. No barriers to goal achievement have been identified.levels have been well controlled fasting as well as post prandialcontinue to work on diet and exercise Related to Impaired glucose tolerance (oral) Dietary management e ducation, guidance, and counseling Related to Body mass index (BMI) 26.0-26.9, adult Giving encouragement to exercise Related to Body mass index (BMI) 26.0-26.9, adult Disease process headaches are much b etterseem to be more sinus relatedblood pressure is well controlledcall me with any changes to your headache pattern Related to Personal history of other diseases of the circulatory system Status: Able to self -manage condition. Goals: Your goal is to work on healthy eating habits. No barriers to goal achievement have been identified.levels have been well controlled fasting as well as post prandialcontinue to work on diet and exercise Related to Impaired glucose tolerance (oral) levels will be check edcontinue with your supplement Related to Vitamin D deficiency, unspecified Your blood pressure is well controlledno changes at this timereturn to me in 4 monthscall me with questions or concernscmp cbc tsh lipids vitamin D ua to be checked fasting Related to Essential (primary) hypertension Disease process Dietary management e ducation, guidance, and counseling Related to Body mass index (BMI) 26.0-26.9, adult Giving encouragement to exercise Related to Body mass index (BMI) 26.0-26.9, adult try to keep an eye o n when it happens, especially in relation to food.let me know if this returns.Call with any questions or concernscbc, cmp, lipids, A1c, TSH, ua todayreturn in 6 monthsdeclines vaccines Related to Abdominal complaints Status: Meeting rich tment plan goals. Goals: Your goal is to be active. No barriers to goal achievement have been identified.I encourage you to be more activeyour goal is to lose 10 [id number] todayI will try to get records form you eye examplease sign for record release. Related to Impaired glucose tolerance (oral) work on less salty f oodsmore waterBP control is great.no change in meds Related to Essential (primary) hypertension Dietary management e ducation, guidance, and counseling Related to Body mass index (BMI) 25.0-25.9, adult Disease prevention Giving encouragement to exercise Related to Body mass index (BMI) 25.0-25.9, adult Assessments Type Assessment Date No Information Patient Care Teams Name Effective Dates (start - stop) Status Members No Information
[2024-12-01 11:24] LABS: Hematocrit 37.3 % (37.0-47.0); Hemoglobin 12.5 g/dL (12.0-15.0); Immature Granulocyte Percent A 0.1 % (0-0.5); Lymphocytes Absolute Auto 2.49 K/mm3 (0.9-3.2); Mean Corpuscular HGB Conc 33.5 g/dl (32-36); Mean Corpuscular Hemoglobin 28.2 pg (26-34); Mean Corpuscular Volume 84.2 fl (80-100); Nucleated Red Blood Cells Absolute Auto 0.000 K/mm3 (0.0-0.012); Nucleated Red Blood Cells Perc 0.0 % (0.0-0.2); Platelet Count Result 401 k/mm3 (150-375); Red Blood Count 4.43 M/mm3 (4.2-5.4); White Blood Count 8.3 K/mm3 (4.5-10.0)
[2024-12-01 11:35] LABS: Iron 87 ug/dL (37-170)
[2024-12-01 11:42] LABS: Alanine Aminotransferase 8 U/L (6-35); Albumin Level 4.0 g/dL (3.5-5.1); Alkaline Phosphatase 44 U/L (38-126); Anion Gap 8 mmol/L (4-12); Aspartate Amino Transferase 23 U/L (14-36); Bilirubin,Total 0.9 mg/dL (0.2-1.3); Blood Urea Nitrogen 13 mg/dL (7-17); Calcium 9.3 mg/dL (8.4-10.2); Carbon Dioxide 25 mmol/L (22-30); Chloride 104 mmol/L (98-107); Cholesterol 154 mg/dL (0-200); Creatine Kinase 115 U/L (30-135); Estimated Glomerular Filt Rate 59; Glucose 109 mg/dL (65-110); HDL Direct 62 mg/dL; Potassium 3.4 mmol/L (3.4-5.0); Sodium 137 mmol/L (137-145); Total Protein 8.0 g/dL (6.3-8.2); Triglycerides 125 mg/dL (<150)
[2024-12-01 11:50] LABS: Percent Iron Saturation 24 % (20-50)
[2024-12-01 11:51] LABS: Hemoglobin A1C 6.4 % (<5.7)
[2024-12-01 12:10] LABS: Thyroid Stimulating Hormone Reflex 2.220 uIU/mL (0.465-4.68)
[2024-12-01 12:14] LABS: Ferritin 32.90 ng/mL (6.24-137)
[2024-12-01 17:17] LABS: MALB Creatinine Ratio 3.6 mg/g (0-30)
== END 2024-12-01 10:18 | disposition home or self-care (01) ==
LOC: ANHLAB 10:19
PROVIDERS: PCP Internal Medicine; Visit Provider Internal Medicine
DX: D50.9 Iron deficiency anemia, unspecified (principal); E55.9 Vitamin D deficiency, unspecified; R73.03 Prediabetes; I10 Essential (primary) hypertension
CPT/HCPCS: 36415; 80053; 80061; 82043; 82306; 82550; 82728; 83036; 83540; 83550; 84443; 85025